=== PATIENT | female | born 1960 | race Caucasian/White ===

== ENCOUNTER 2024-01-21 08:24 | Outpatient (CLI) | payer BC ==
[2024-01-21] MEDS ORDERED: Magnevist 469MG/ML 20 ML VIAL ONE (11:15)
== END 2024-01-21 08:25 | disposition home or self-care (01) ==
LOC: CSHMRI 08:24
PROVIDERS: ATTEND Psychiatry & Neurology Neurology
DX: R25.1 Tremor, unspecified (principal); I67.9 Cerebrovascular disease, unspecified
CPT/HCPCS: 70553; 76376; A9579